=== PATIENT | female | born 1995 | race American Indian/Alaskan Native ===

== ENCOUNTER 2018-04-03 16:19 | Emergency (ER) | payer SELFPAY ==
[2018-04-03] MEDS ORDERED: NACL 0.9% 1000 ML 1,000 ML IV ONE (17:22)
[2018-04-03 17:47] LABS: Basophils # (Auto) 0.1 K/mm3 (0.0-0.1); Basophils % (Auto) 0.7 % (0.0-1.8); Eosinophils # (Auto) 0.2 K/mm3 (0.0-0.4); Eosinophils % (Auto) 1.4 % (0.0-4.3); Hematocrit 37.4 % (30.3-42.9); Hemoglobin 12.1 gm/dl (10.1-14.3); Lymphocytes # (Auto) 2.1 K/mm3 (1.2-5.4); Lymphocytes % (Auto) 17.5 % (13.4-35.0); Mean Corpuscular HGB Conc 32 % (30-34); Mean Corpuscular Hemoglobin 28 pg (28-32); Mean Corpuscular Volume 85 fl (79-97); Monocytes # (Auto) 0.9 K/mm3 (0.0-0.8); Monocytes % (Auto) 7.2 % (0.0-7.3); Platelet Count 271 K/mm3 (140-440); Red Blood Count 4.39 M/mm3 (3.65-5.03); Red Cell Distribution Width 13.8 % (13.2-15.2)
[2018-04-03 18:02] LABS: Alanine Aminotransferase 14 units/L (7-56); Albumin 4.1 g/dL (3.9-5); BUN/Creatinine Ratio 10; Blood Urea Nitrogen 7 mg/dL (7-17); Calcium 9.1 mg/dL (8.4-10.2); Hemolysis Index 5; Lipase 33 units/L (13-60)
[2018-04-03 18:46] LABS: Bilirubin,Urine NEG (Negative); Blood,Urine NEG (Negative); Color,Urine Yellow (Yellow); Mucus,Urine FEW /HPF; Protein,Urine <15 mg/dL mg/dL (Negative); RBC,Urine < 1.0 /HPF (0.0-6.0); Urobilinogen,Urine < 2.0 mg/dL (<2.0)
[2018-04-03 18:50] LABS: HCG Qualitative,Urine Positive (Negative)
[2018-04-03] MEDS ORDERED: ZOFRAN ODT PO ONE (20:43)
[2018-04-03] MEDS ORDERED: TYLENOL PO ONE (20:43)
--- NOTE | 2018-04-03 20:44 | Emergency Department Report ---
Blank Doc - Documentation Documentation: This 23-year-old female who presents with left-sided pelvic pain and estrella sea vomiting 1 week. Patient states she is uncertain if she is . Upon examination patient is slight tenderness towards the left lower abdomen. Labs obtained and does have positive for urine test. Quantitative test will be ordered. Patient will be given Zofran and Tylenol. OB and transvaginal will be also obtain to rule out ectopic . Patient sign out to provider for further evaluation and treatment.
--- NOTE | 2018-04-03 21:01 | Emergency Department Report ---
ED Abdominal Pain HPI - General Chief Complaint: Abdominal Pain Stated Complaint: STOMACH PAIN/ Time Seen by Provider: 04/03/18 20:36 Source: patient Mode of arrival: Ambulatory Limitations: No Limitations - History of Present Illness Initial Comments: This 23-year-old female who presents with left-sided pelvic pain and nausea vomiting 1 week. Patient states she is uncertain if she is . Denies any urinary burning frequency urgency. She says she has a history of gastritis but this pain feels different. She is also complaining of some left pelvic pain. Pain is 4-10 and crampy comes and goes. No alleviating or exacerbating factors. Last menstrual cycle was 02/12/2018. Denies any fever or chills. Denies any vaginal bleeding. No medication taken prior to coming to the emergency room MD Complaint: abdominal pain Onset/Timin -: week(s) Location: suprapubic Radiation: none Migration to: no migration Severity: mild Severity scale (0 -10): 4 Quality: cramping Consistency: intermittent Improves With: nothing Worsens With: nothing Associated Symptoms: nausea, vomiting. denies: diarrhea, fever, chills, constipation, dysuria, hematemesis, hematochezia, melena, hematuria, anorexia, syncope Treatments Prior to Arrival: other (none) - Related Data LMP Date: 02/12/18 Home Medications Medication Instructions Recorded Confirmed Last Taken Ibuprofen [Motrin] 400 mg PO Q6H PRN 05/16/13 05/16/13 05/16/13 Previous Rx's Medication Instructions Recorded Last Taken Type Ibuprofen [Motrin] 800 mg PO TID PRN #20 tablet 05/16/13 Unknown Rx Acetaminophen/Codeine 1 tab PO Q6H PRN #25 tab 03/13/14 Unknown Rx [Acetaminophen-Codeine #3 TAB] Famotidine [Pepcid] 20 mg PO BID #40 tablet 03/13/14 Unknown Rx Hyoscyamine Subl [Levsin Sl] 0.125 mg SL Q4HR PRN #20 tablet 03/13/14 Unknown Rx Ibuprofen [Motrin] 600 mg PO Q8H PRN #40 tablet 03/13/14 Unknown Rx Cyclobenzaprine [Flexeril] 10 mg PO QHS PRN #10 tablet 02/24/18 Unknown Rx Ibuprofen [Motrin] 600 mg PO Q8H PRN #20 tablet 02/24/18 Unknown Rx Ondansetron [Zofran Odt] 4 mg PO Q8HR PRN #12 tab.rapdis 04/03/18 Unknown Rx Vit No.130/Iron/Folic 1 each PO QAM 30 Days #30 tablet 04/03/18 Unknown Rx [ Tablet] Allergies Allergy/AdvReac Type Severity Reaction Status Date / Time No Known Allergies Allergy Unverified 05/16/13 17:53 ED Review of Systems ROS: Stated complaint: STOMACH PAIN/ Other details as noted in HPI Constitutional: denies: chills, fever Respiratory: denies: cough, shortness of breath, wheezing Cardiovascular: denies: chest pain, palpitations, edema, syncope Gastrointestinal: abdominal pain, nausea, vomiting. denies: diarrhea, constipation, hematemesis, melena, hematochezia Genitourinary: abnormal menses. denies: urgency, dysuria, frequency, hematuria, discharge Musculoskeletal: denies: back pain, joint swelling, arthralgia, myalgia Skin: denies: rash Neurological: denies: headache, numbness, paresthesias, confusion, abnormal gait, vertigo ED Past Medical Hx - Past Medical History Previous Medical History?: Yes Hx GERD: Yes (gastritis) Hx Asthma: Yes - Surgical History Past Surgical History?: Yes Additional Surgical History: EGD - Family History Family history: hypertension - Social History Smoking Status: Never Smoker Substance Use Type: None - Medications Home Medications: Home Medications Medication Instructions Recorded Confirmed Last Taken Type Ibuprofen [Motrin] 400 mg PO Q6H PRN 05/16/13 05/16/13 05/16/13 History Ibuprofen [Motrin] 800 mg PO TID PRN #20 tablet 05/16/13 Unknown Rx Acetaminophen/Codeine 1 tab PO Q6H PRN #25 tab 03/13/14 Unknown Rx [Acetaminophen-Codeine #3 TAB] Famotidine [Pepcid] 20 mg PO BID #40 tablet 03/13/14 Unknown Rx Hyoscyamine Subl [Levsin Sl] 0.125 mg SL Q4HR PRN #20 tablet 03/13/14 Unknown Rx Ibuprofen [Motrin] 600 mg PO Q8H PRN #40 tablet 03/13/14 Unknown Rx Cyclobenzaprine [Flexeril] 10 mg PO QHS PRN #10 tablet 02/24/18 Unknown Rx Ibuprofen [Motrin] 600 mg PO Q8H PRN #20 tablet 02/24/18 Unknown Rx Ondansetron [Zofran Odt] 4 mg PO Q8HR PRN #12 tab.rapdis 04/03/18 Unknown Rx Vit No.130/Iron/Folic 1 each PO QAM 30 Days #30 tablet 04/03/18 Unknown Rx [ Tablet] ED Physical Exam - General Limitations: No Limitations General appearance: alert, in no apparent distress - Head Head exam: Present: atraumatic, normocephalic, normal inspection - Eye Eye exam: Present: normal appearance, PERRL, EOMI Pupils: Present: normal accommodation - ENT ENT exam: Present: normal exam, normal orophraynx, mucous membranes moist - Neck Neck exam: Present: normal inspection, full ROM. Absent: tenderness, lymphadenopathy - Respiratory Respiratory exam: Present: normal lung sounds bilaterally. Absent: respiratory distress, chest wall tenderness - Cardiovascular Cardiovascular Exam: Present: regular rate, normal rhythm, normal heart sounds - GI/Abdominal GI/Abdominal exam: Present: soft, tenderness (left lower quadrant abdomen), normal bowel sounds. Absent: distended, guarding, rebound, rigid, organomegaly, mass - External exam: Present: normal external exam - Extremities Exam Extremities exam: Present: normal inspection, full ROM, normal capillary refill, other (No cce. + 2 pulses in all extremities, no neurovascular compromise). Absent: tenderness, pedal edema, joint swelling, calf tenderness - Back Exam Back exam: Present: normal inspection, full ROM, other (Ambulates without any difficulties). Absent: tenderness, CVA tenderness (R), CVA tenderness (L) - Neurological Exam Neurological exam: Present: alert, oriented X3, normal gait - Psychiatric Psychiatric exam: Present: normal affect, normal mood - Skin Skin exam: Present: warm, dry, intact, normal color. Absent: rash ED Course Vital Signs 04/03/18 17:17 Temperature 98.5 F Pulse Rate 77 Respiratory 18 Rate Blood Pressure 125/65 O2 Sat by Pulse 100 Oximetry - Reevaluation(s) Reevaluation #1: 04/03/18 21:25 Patient received Zofran 4 mg ODT and Tylenol 975 mg by mouth. She is currently in ultrasound for OB ultrasound. Positive . Reevaluation #2: 04/03/18 21:51 Patient given juice and tolerate well Reevaluation #3: 04/03/18 23:37 Patient nausea has been relieved and she is able to tolerate oral liquids in emergency room without any nausea or vomiting. ED Medical Decision Making - Lab Data Result diagrams: 04/03/18 17:33 04/03/18 17:33 Lab Results 04/03/18 04/03/18 04/03/18 Range/Units 17:33 17:33 18:00 WBC 12.3 H (4.5-11.0) K/mm3 RBC 4.39 (3.65-5.03) M/mm3 Hgb 12.1 (10.1-14.3) gm/dl Hct 37.4 (30.3-42.9) % MCV 85 (79-97) fl MCH 28 (28-32) pg MCHC 32 (30-34) % RDW 13.8 (13.2-15.2) % Plt Count 271 (140-440) K/mm3 Lymph % (Auto) 17.5 (13.4-35.0) % Foard % (Auto) 7.2 (0.0-7.3) % Eos % (Auto) 1.4 (0.0-4.3) % Baso % (Auto) 0.7 (0.0-1.8) % Lymph # 2.1 (1.2-5.4) K/mm3 Foard # 0.9 H (0.0-0.8) K/mm3 Eos # 0.2 (0.0-0.4) K/mm3 Baso # 0.1 (0.0-0.1) K/mm3 Seg Neutrophils % 73.2 H (40.0-70.0) % Seg Neutrophils # 9.0 H (1.8-7.7) K/mm3 Sodium 137 (137-145) mmol/L Potassium 3.6 (3.6-5.0) mmol/L Chloride 98.4 (98-107) mmol/L Carbon Dioxide 25 (22-30) mmol/L Anion Gap 17 mmol/L BUN 7 (7-17) mg/dL Creatinine 0.7 (0.7-1.2) mg/dL Estimated GFR > 60 ml/min BUN/Creatinine Ratio 10 % Glucose 78 (65-100) mg/dL Calcium 9.1 (8.4-10.2) mg/dL Total Bilirubin 0.60 (0.1-1.2) mg/dL AST 14 (5-40) units/L ALT 14 (7-56) units/L Alkaline Phosphatase 47 (35-129) units/L Total Protein 7.7 (6.3-8.2) g/dL Albumin 4.1 (3.9-5) g/dL Albumin/Globulin Ratio 1.1 % Lipase 33 (13-60) units/L HCG, Quant (0-4) mIU/mL Urine Color Yellow (Yellow) Urine Turbidity Clear (Clear) Urine pH 6.0 (5.0-7.0) Ur Specific [place] 1.008 (1.003-1.030) Urine Protein <15 mg/dl (Negative) mg/dL Urine Glucose (UA) Neg (Negative) mg/dL Urine Ketones Neg (Negative) mg/dL Urine Blood Neg (Negative) Urine Nitrite Neg (Negative) Urine Bilirubin Neg (Negative) Urine Urobilinogen < 2.0 (<2.0) mg/dL Ur Leukocyte Esterase Tr (Negative) Urine WBC (Auto) 1.0 (0.0-6.0) /HPF Urine RBC (Auto) < 1.0 (0.0-6.0) /HPF U Epithel Cells (Auto) 1.0 (0-13.0) /HPF Urine Mucus Few /HPF Urine HCG, Qual (Negative) 04/03/18 04/03/18 Range/Units 18:00 20:44 WBC (4.5-11.0) K/mm3 RBC (3.65-5.03) M/mm3 Hgb (10.1-14.3) gm/dl Hct (30.3-42.9) % MCV (79-97) fl MCH (28-32) pg MCHC (30-34) % RDW (13.2-15.2) % Plt Count (140-440) K/mm3 Lymph % (Auto) (13.4-35.0) % Foard % (Auto) (0.0-7.3) % Eos % (Auto) (0.0-4.3) % Baso % (Auto) (0.0-1.8) % Lymph # (1.2-5.4) K/mm3 Foard # (0.0-0.8) K/mm3 Eos # (0.0-0.4) K/mm3 Baso # (0.0-0.1) K/mm3 Seg Neutrophils % (40.0-70.0) % Seg Neutrophils # (1.8-7.7) K/mm3 Sodium (137-145) mmol/L Potassium (3.6-5.0) mmol/L Chloride (98-107) mmol/L Carbon Dioxide (22-30) mmol/L Anion Gap mmol/L BUN (7-17) mg/dL Creatinine (0.7-1.2) mg/dL Estimated GFR ml/min BUN/Creatinine Ratio % Glucose (65-100) mg/dL Calcium (8.4-10.2) mg/dL Total Bilirubin (0.1-1.2) mg/dL AST (5-40) units/L ALT (7-56) units/L Alkaline Phosphatase (35-129) units/L Total Protein (6.3-8.2) g/dL Albumin (3.9-5) g/dL Albumin/Globulin Ratio % Lipase (13-60) units/L HCG, Quant 42392 H (0-4) mIU/mL Urine Color (Yellow) Urine Turbidity (Clear) Urine pH (5.0-7.0) Ur Specific [place] (1.003-1.030) Urine Protein (Negative) mg/dL Urine Glucose (UA) (Negative) mg/dL Urine Ketones (Negative) mg/dL Urine Blood (Negative) Urine Nitrite (Negative) Urine Bilirubin (Negative) Urine Urobilinogen (<2.0) mg/dL Ur Leukocyte Esterase (Negative) Urine WBC (Auto) (0.0-6.0) /HPF Urine RBC (Auto) (0.0-6.0) /HPF U Epithel Cells (Auto) (0-13.0) /HPF Urine Mucus /HPF Urine HCG, Qual Positive A (Negative) - Radiology Data Transabdominal and transvaginal ultrasound OB dictated by radiologist's report reviewed by myself. Please see details below. Findings [facility] [address] [place] [address] Ultrasound Report Signed Patient: ED YANG MR#: [id number] : 1995 Acct:[id number] Age/Sex: 23 / F ADM Date: 04/03/18 Loc: ED Attending Dr: Ordering Physician: ZHANNA MUJICA NP Date of Service: 04/03/18 Procedure(s): US OB transvaginal Accession Number(s): [id number] cc: ZHANNA MUJICA NP FINAL REPORT PROCEDURE: Transvaginal obstetrical ultrasound. TECHNIQUE: Real-time transvaginal sonography of the uterus, placenta, amniotic fluid, adnexa, and fetus was performed with image documentation. Measurements were obtained to determine age/size. M-mode Doppler was used to document heartbeat. CPT 24232 HISTORY: Pelvic pain. COMPARISON: No prior studies are available for comparison. FINDINGS: The myometrium appears normal. There is an intrauterine gestational sac. A yolk sac and pole are visible. Cardiac activity is documented at 144 beats per minute. The crown- rump length measurement is 1.17 centimeters. This indicates a menstrual age of 7 weeks 2 days. The mean gestational sac diameter is 2.45 centimeters. This indicates a menstrual age of 7 weeks 4 days. The composite menstrual age is 7 weeks 3 days. The estimated date of confinement is 11/17/2018. Both ovaries appear normal in size. There is a hypoechoic area in the left ovary that measures 2.0 centimeters in maximum dimension. This may represent a corpus luteum. There is no free fluid in the cul-de-sac. IMPRESSION: Viable intrauterine with a menstrual age of 7 weeks 3 days. Transcribed By: [facility] Dictated By: RAINA PALOMARES MD Electronically Authenticated By: RAINA PALOMARES MD Signed Date/Time: 04/03/182219 DD/ 21 TD/TT: 04/03/182221 Findings [facility] [address] [place] [address] Ultrasound Report Signed Patient: ED YANG MR#: [id number] : 1995 Acct:[id number] Age/Sex: 23 / F ADM Date: 04/03/18 Loc: ED Attending Dr: Ordering Physician: ZHANNA MUJICA NP Date of Service: 04/03/18 Procedure(s): US OB <= 14 weeks fetus Accession Number(s): [id number] cc: ZHANNA MUJICA NP FINAL REPORT PROCEDURE: Transabdominal obstetrical ultrasound. TECHNIQUE: Real-time transabdominal sonography of the uterus, placenta, amniotic fluid, adnexa, and fetus was performed with image documentation. Measurements were obtained to determine age/size. M-mode Doppler was used to document heartbeat. HISTORY: Pelvic pain. COMPARISON: No prior studies are available for comparison. FINDINGS: The uterus measures 9.9 centimeters x 4.7 centimeters x 7.4 centimeters. The myometrium appears fairly uniform. There is an intrauterine gestational sac. The mean gestational sac diameter is 2.3 centimeters. This indicates a menstrual age of 7 weeks 2 days. A pole is present. Cardiac activity is demonstrated at 146 beats per minute. The crown-rump length measurement is 9.7 millimeters. This indicates a menstrual age of 7 weeks 0 days. The composite menstrual age is 7 weeks 1 day. The estimated date of confinement is 11/19/2018. Both ovaries appe ar normal in size. IMPRESSION: Viable intrauterine with a menstrual age of 7 weeks 1 day. Transcribed By: [facility] Dictated By: RAINA PALOMARES MD Electronically Authenticated By: RAINA PALOMARES MD Signed Date/Time: 04/03/182215 DD/ 17 TD/TT: 04/03/182217 - Medical Decision Making This is a 23-year-old female here report that she is having and left lower quadrant abdominal cramping along with nausea and vomiting for over a week. She says she thinks she is but she is not sure she is late on her period .physical findings for tenderness to left lower quadrant of abdomen with no guarding or rebound. CBC, CMP and urinalysis is stable. test is positive and quantitative hCG positive and correlates with ultrasound. Transabdominal and transvaginal ultrasound shows patient with single intrauterine at 7 weeks and 2 days and heart tone is 144 bpm. I discussed laboratory and ultrasound reported patient until additionally to follow-up with [facility] and started on vitamin. She voices understanding. Patient discharged home a prescription for vitamin and referred to [facility] Dr. Damaris Eller. The signs are stable she is afebrile and nausea has been relieved. No pain. - Differential Diagnosis ectopic , ovarian torsion, ovarian cyst, fibroids UTI, Critical care attestation.: If time is entered above; I have spent that time in minutes in the direct care of this critically ill patient, excluding procedure time. ED Disposition Clinical Impression: Nausea and vomiting during , Abdominal pain during intrauterine Disposition: TO HOME OR SELFCARE Is pt being admited?: No Does the pt Need Aspirin: No Condition: Stable Instructions: Morning Sickness (ED), Abdominal Pain (ED), Abdominal Pain in (ED) Additional Instructions: Follow-up with [facility] Dr. Damaris Eller in 2 days Take Zofran for nausea Crease U fluid intake and start taking vitamin If you develop vaginal bleeding , worsening abdominal pain and worsening nausea and vomiting and please return to the emergency room DEANDRA Referrals: [facility] [Outside] - 04/05/18 DAMARIS ELLER MD [Staff Physician] - 04/05/18 Forms: Work/School Release Form(ED)
--- NOTE | 2018-04-03 22:16 | Ultrasound Report ---
FINAL REPORT PROCEDURE: Transabdominal obstetrical ultrasound. TECHNIQUE: Real-time transabdominal sonography of the uterus, placenta, amniotic fluid, adnexa, and fetus was performed with image documentation. Measurements were obtained to determine age/size. M-mode Doppler was used to document heartbeat. HISTORY: Pelvic pain. COMPARISON: No prior studies are available for comparison. FINDINGS: The uterus measures 9.9 centimeters x 4.7 centimeters x 7.4 centimeters. The myometrium appears fairl y uniform. There is an intrauterine gestational sac. The mean gestational sac diameter is 2.3 centime ters. This indicates a menstrual age of 7 weeks 2 days. A pole is present. Cardiac activity is demonstrated at 146 beats per minute. The crown-rump length measurement is 9.7 millimeters. This ghazal cates a menstrual age of 7 weeks 0 days. The composite menstrual age is 7 weeks 1 day. The estimated date of confinement is 11/19/2018. Both ovaries appear normal in size. IMPRESSION: Viable intrauterine with a menstrual age of 7 weeks 1 day.
--- NOTE | 2018-04-03 22:20 | Ultrasound Report ---
FINAL REPORT PROCEDURE: Transvaginal obstetrical ultrasound. TECHNIQUE: Real-time transvaginal sonography of the uterus, placenta, amniotic fluid, adnexa, and fe tus was performed with image documentation. Measurements were obtained to determine age/size. M -mode Doppler was used to document heartbeat. CPT 15159 HISTORY: Pelvic pain. COMPARISON: No prior studies are available for comparison. FINDINGS: The myometrium appears normal. There is an intrauterine gestational sac. A yolk sac and pole ar e visible. Cardiac activity is documented at 144 beats per minute. The crown-rump length measurement is 1.17 centimeters. This indicates a menstrual age of 7 weeks 2 days. The mean gestational sac diame ter is 2.45 centimeters. This indicates a menstrual age of 7 weeks 4 days. The composite menstrual ag e is 7 weeks 3 days. The estimated date of confinement is 11/17/2018. Both ovaries appear normal in s ize. There is a hypoechoic area in the left ovary that measures 2.0 centimeters in maximum dimension. This may represent a corpus luteum. There is no free fluid in the cul-de-sac. IMPRESSION: Viable intrauterine with a menstrual age of 7 weeks 3 days.
[2018-04-04 00:08] VITALS: BP 120/66
== END 2018-04-04 | disposition home or self-care (01) ==
LOC: ED 16:19
DX: O26.891 Other specified pregnancy related conditions, first trimester (principal); O21.8 Other vomiting complicating pregnancy; R10.2 Pelvic and perineal pain; R11.0 Nausea; O99.511 Diseases of the respiratory system complicating pregnancy, first trimester; O99.611 Diseases of the digestive system complicating pregnancy, first trimester; K92.89 Other specified diseases of the digestive system; Z3A.01 Less than 8 weeks gestation of pregnancy
CPT/HCPCS: 36415; 76801; 76817; 80053; 81001; 81025; 83690; 84702; 85025; Q0162